=== PATIENT | male | born 1970 | race Hispanic/Latino ===

== ENCOUNTER 2021-07-15 13:53 | Emergency (ER) | payer OTHER ==
[~2021-07-15] VITALS: Ht 170.2 cm; Wt 79.8 kg
[2021-07-15] MEDS ORDERED: HYDROCODONE/ACETAMINOPHEN 5/325 MG TAB PO ONE (15:00)
[2021-07-15] MEDS ORDERED: TETANUS/DIPHTHERIA TOXOID [ADULT] 0.5 ML VIAL IM ONE (15:00)
[2021-07-15 15:30] VITALS: BP 142/90
== END 2021-07-15 15:32 | disposition home or self-care (01) ==
LOC: EDH 13:53
DX: S61.012A Laceration without foreign body of left thumb without damage to nail, initial encounter (principal); X58.XXXA Exposure to other specified factors, initial encounter; Y93.89 Activity, other specified; Y92.89 Other specified places as the place of occurrence of the external cause; Y99.8 Other external cause status
CPT/HCPCS: 12001; 90471; 90714

== ENCOUNTER 2023-04-08 12:06 | Emergency (ER) | payer OTHER ==
[~2023-04-08] VITALS: Ht 167.6 cm; Wt 85.7 kg
[2023-04-08] MEDS ORDERED: BUPIVACAINE/PF 0.5% 10ML VIAL IJ ONE (13:00)
[2023-04-08] MEDS ORDERED: HYDROCODONE/ACETAMINOPHEN 5/325 MG TAB PO ONE (13:00)
[2023-04-08] MEDS ORDERED: MUPI22OI2 TP (14:56)
[2023-04-08 15:55] VITALS: BP 135/99; PULSE 65; RESP 17; O2SAT 98
== END 2023-04-08 15:56 | disposition home or self-care (01) ==
LOC: EDH 12:06
DX: S61.214A Laceration without foreign body of right ring finger without damage to nail, initial encounter (principal); I10 Essential (primary) hypertension; E11.9 Type 2 diabetes mellitus without complications; W45.8XXA Other foreign body or object entering through skin, initial encounter; Y93.89 Activity, other specified; Y92.89 Other specified places as the place of occurrence of the external cause; Y99.8 Other external cause status
CPT/HCPCS: 99283; 12001; J0665